=== PATIENT | female | born 1980 | race Caucasian/White ===

== ENCOUNTER 2019-04-02 21:09 | Observation (INO) ==
[2019-04-02] MEDS ORDERED: BOOSTRIX VACCINE IM ONE (21:44)
--- NOTE | 2019-04-02 21:44 | PROVIDER DOCUMENTATION ---
This chart was entered by Pauly Brown Scribe, acting as scribe for Pa Estes MD. HPI-Animal/Snake Bite Injury - General Chief Complaint: Snake Bite Stated Complaint: ANIMAL BITE Time Seen by Provider: 04/02/19 21:14 Patient arrived via EMS?: No Source: patient Allergies/Adverse Reactions: Patient Allergies Allergy/AdvReac Type Severity Reaction Status Date / Time No Known Allergies Allergy Verified 04/02/19 22:50 Home Medications: Home Medication List Medication Instructions Recorded Confirmed Last Taken Type Clonazepam [Klonopin] 0.5 mg PO Q6-8H PRN PRN 04/03/19 04/03/19 Unknown History Escitalopram Oxalate [Lexapro] 10 mg PO DAILY 04/03/19 04/03/19 Unknown History Levothyroxine [Synthroid] 100 mcg PO DAILY 04/03/19 04/03/19 Unknown History [place] Carbonate 450 mg PO BID 04/03/19 04/03/19 Unknown History - History of Present Illness-Bite Injuries Nature of Presenting Problem: 38yof presents to ED cc bitten by a copperhead snake at 8:45pm on right index finger. Pt reports snake was headed toward daughter, she got a towel, caught the snake with it and the snake bit her through the towel. Pt has snake in a bag in the ED. Pt denies SOB, N/V/D. Pt is A&Ox3. Onset/Duration: 1 hour ago Timing: reports: still present Locality of Occurance: Home Severity: mild Quality: stinging Loss of Consciousness: no loss of consciousness Remembers:: injury, coming to hospital Similar Symptoms Previously?: No Recently seen or treated by another doctor?: No - Snake Bite Snake Bite: reports: other (copperhead) Bite Injury Location: reports: hands (right index finger) Circumstances of attack: approached snake Severity of Bite Injury: reports: bitten Review of Systems - Adult - REVIEW OF SYSTEMS - ADULT Constitutional: reports: see HPI. denies: chills, fever, fatique Eyes: reports: no symptoms reported Ears, Nose, Mouth & Throat: reports: no symptoms reported Cardiovascular: reports: no symptoms reported Respiratory: reports: no symptoms reported Gastrointestinal: reports: no symptoms reported Genitourinary: reports: no symptoms reported Musculoskeletal: reports: no symptoms reported Integumentary: reports: see HPI, other (snake bite) Neurological: reports: no symptoms reported Psychiatric: reports: no symptoms reported Endocrine: reports: no symptoms reported Hematologic/Lymphatic: reports: no symptoms reported Allergic/Immunologic: reports: no symptoms reported All Other Systems: Reviewed and Negative Past History - Adult - PAST MEDICAL HISTORY-ADULT Review of Records: reports: Nursing Assessment Review, Medications Reviewed, Social history reviewed & non-contributory. Major Childhood Illnesses: reports: denies history Cardiovascular: reports: denies history Respiratory: reports: denies history Gastrointestinal: reports: denies history Obstetrical/Gynecological: reports: denies history Genitourinary: reports: denies history Musculoskeletal: reports: denies history Neurological: reports: denies history Endocrine/Immune: reports: denies history Other Conditions: reports: denies history - PRIOR SURGERIES/PROCEDURES Surgical/Procedure History: reports: breast - IMMUNIZATION STATUS Childhood Immunizations: See Nurse Assessment Flu Vaccine: See Nurse Assessment - FAMILY HISTORY Family History: reviewed, not pertinent Physical Exam-General - PHYSICAL EXAM-ADULT Initial Vital Signs Reviewed: Yes - CONSTITUTIONAL General Appearance: appears well, alert, no apparent distress. negative: anxious, combative - RESPIRATORY Respiratory: chest non-tender, lungs clear, normal breath sounds, no pleuratic chest pain, no respiratory distress, no accessory muscle use. negative: crackles, rales, rhonchi, stridor, wheezing - CARDIOVASCULAR Cardiovascular: normal peripheral pulses, regular rate, rhythm, no edema, no gallop, no JVD, no murmur. negative: bradycardia, tachycardia - SKIN Integumentary: normal turgor, other (small-fine puncture wound on right index finger, 1 fang no streaking dried blood). negative: cyanosis, diaphoresis, er ythema, jaundice, swelling - PSYCHIATRIC Psych/Mental Status: normal mood/affect, normal thought content, normal thought process, oriented x 3. negative: disoriented x 3, anxious, disheveled, depressed affect Progress - PLAN OF CARE/RESULTS Result Diagrams: 04/02/19 21:35 04/02/19 21:35 - REASSESSMENT Reassessment #1 Time Reassessed: 22:25 Status: unchanged - CONSULTS/PCP/HOSPITALIST Notification #1 *Consult/PCP/Hospitalist*: Dr. Beasley Time Discussed: 21:45 Consult Disposition: Admit (agreed to admit for observation) Departure - Departure Date of Disposition Decision: 04/03/19 Time of Disposition Decision: 00:01 DIAGNOSIS: Snake bite Qualifiers: Encounter type: initial encounter Qualified Code(s): W59.11XA - Bitten by nonvenomous snake, initial encounter Disposition: ADMITTED INPATIENT 09 Certified Medical Emergency: Emergent Condition: Stable - Critical Care Note This patient required my direct & personal management of CC.: No Attestation - Physician/ MARLEEN Attestation Patient care was provided by Advanced Practice Provider:: No The physician spent face to face time with patient:: Yes Advanced Practice Provider documentation review:: Supervising physician onsite and consulted in the evaluation and care of this patient. The physician did have a face to face encounter with the patient. This chart was documented by the indicated scribe, (Pauly Brown Scribe) and accurately reflects the services I performed and decisions made by me, Pa Estes MD, as attested by the provider's signature.
[2019-04-02] MEDS: NS 1,000 ML IV ONE ×2 (21:57→23:14)
[2019-04-02 22:09] LABS: BASO# 0.02 X1000 (0.0-0.2); BASO% 0.3 % (0.0-0.8); EOS# 0.15 X1000 (0.0-0.7); EOS% 2.5 % (0.0-10.0); HEMOGLOBIN 12.1 g/dL (12.0-16.0); IMM GRAN# 0.01 X1000 (0.0-0.04); IMM GRAN% 0.2 % (0.0-0.5); LYMPH# 2.18 X1000 (1.2-3.4); LYMPH% 36.6 % (20.5-51.1); MCH 27.7 PG (27-31); MCHC 31.8 g/dL (33-37); MONO# 0.44 X1000 (0.11-0.59); MONO% 7.4 % (1.7-9.3); MPV 10.2 FL (7.4-10.4); NEUT# 3.15 X1000 (1.4-6.5); PLT 286 X1000 (130-400); RBC 4.37 XMIL (4.2-5.4); RDW 15.2 % (11.5-14.5); WBC 5.95 X1000 (4.8-10.8)
[2019-04-02 22:14] LABS: AGAP 10; ALBUMIN 4.7 g/dL (3.5-5.0); ALKALINE PHOSPHATASE 68 U/L (32-104); BUN 8 mg/dL (8-22); CALCIUM 9.6 mg/dL (8.8-10.2); CHLORIDE 104 mmol/L (98-107); COSMO 281; CREATININE 0.6 mg/dL (0.5-0.9); ESTIMATED GFR > 60; GLUCOSE 127 mg/dL (70-104); GOT 30 U/L (10-30); GPT 26 U/L (10-36); POTASSIUM 3.3 mmol/L (3.5-5.1); SODIUM 141 mmol/L (136-145); TCO2 27 mmol/L (25-35); TOTAL PROTEIN 8.1 g/dL (6.3-8.3)
[2019-04-02 22:15] LABS: INR 0.91; PROTIME 12.7 Seconds (11.0-16.0); PTT 26.4 Seconds (22.3-41.8)
[2019-04-02 22:26] LABS: BILIRUBIN URINE NEGATIVE (NEGATIVE); BLOOD URINE NEGATIVE (NEGATIVE); CLARITY CLEAR (CLEAR); COLOR YELLOW; GLUCOSE URINE NEGATIVE (NEGATIVE); KETONE URINE NEGATIVE (NEGATIVE); LEUKOCYTES URINE NEGATIVE (NEGATIVE); NITRITE URINE NEGATIVE (NEGATIVE); PROTEIN URINE NEGATIVE (NEGATIVE); SP GRAVITY URINE 1.005; UROBILINOGEN URINE NORMAL
[2019-04-02] MEDS ORDERED: NS 1,000 ML IV ONE (22:27)
[2019-04-02 22:29] LABS: URINE BACTERIA NEGATIVE /HFP; URINE EPITHELIAL CELLS <10 /HPF (<10); URINE RBC <10 /HPF (<10); URINE SOURCE CLEAN CATCH; URINE WBC <10 /HPF (<10)
[2019-04-02] MEDS ORDERED: ZOFRAN ONE (23:02)
[2019-04-02] MEDS ORDERED: MORPHINE ONE (23:03)
[2019-04-02] MEDS: MORPHINE IV PRN (23:13)
[2019-04-02] MEDS: ZOFRAN IV PRN (23:16)
[2019-04-03] MEDS: MORPHINE IV PRN (01:14)
[2019-04-03] MEDS ORDERED: NS 1,000 ML IV SCH (04:45)
[2019-04-03] MEDS ORDERED: NORCO-7.5 PO PRN (07:53)
[2019-04-03] MEDS: ZOFRAN IV PRN (08:10)
[2019-04-03] MEDS ORDERED: LEXAPRO PO SCH (09:15)
[2019-04-03 09:33] LABS: BASO# 0.02 X1000 (0.0-0.2); BASO% 0.4 % (0.0-0.8); EOS# 0.14 X1000 (0.0-0.7); EOS% 3.1 % (0.0-10.0); HEMATOCRIT 35.5 % (37.0-47.0); HEMOGLOBIN 10.8 g/dL (12.0-16.0); LYMPH# 1.91 X1000 (1.2-3.4); LYMPH% 41.6 % (20.5-51.1); MCH 27.1 PG (27-31); MCHC 30.4 g/dL (33-37); MONO# 0.37 X1000 (0.11-0.59); MONO% 8.1 % (1.7-9.3); MPV 10.4 FL (7.4-10.4); NEUT# 2.15 X1000 (1.4-6.5); NEUT% 46.8 % (42.2-75.2); PLT 223 X1000 (130-400); RBC 3.99 XMIL (4.2-5.4); RDW 15.4 % (11.5-14.5); WBC 4.59 X1000 (4.8-10.8)
[2019-04-03 10:04] LABS: INR 0.97; PROTIME 13.4 Seconds (11.0-16.0)
[2019-04-03 10:05] LABS: PTT 28.5 Seconds (22.3-41.8)
--- NOTE | 2019-04-03 10:31 | HISTORY AND PHYSICAL ---
DATE OF ACTUAL HISTORY AND PHYSICAL: 04/03/2019. PRIMARY CARE PROVIDER: None. CHIEF COMPLAINT: Snake bite. HISTORY OF PRESENT ILLNESS: Ms. Abebe is a 38-year-old, female who reports being bitten by a copperhead snake around 8:45 p.m. on her right index finger. She was trying to denise the snake away. She thought it was a chicken snake. She got a towel, caught the snake, and it bit her through the towel with only one fang cassandra. She did have some initial swelling to the direct area. However, that has gone down significantly. There was no shortness of breath, nausea, vomiting, or diarrhea. No loss of consciousness. She is awake, alert, and oriented. The initial vital signs were completely unremarkable. Coagulations with PT, INR, PTT, and fibrinogen were all within normal limits. She did receive a Tdap booster in the ED, as well as pain medication and IV fluids, and has been monitored in observation status. Awaiting recheck of coagulation labs this morning. REVIEW OF SYSTEMS: Twelve-point review of systems completely negative except for those mentioned in the HPI. PAST MEDICAL HISTORY: 1. Gastroesophageal reflux disease. 2. Kidney stones. 3. Thyroid disease. 4. Bipolar. PAST SURGICAL HISTORY: 1. Partial hysterectomy. 2. Left breast reduction. 3. Kidney stone removal. 4. Cyst removal. FAMILY HISTORY: Reviewed and noncontributory. ALLERGIES: No known drug allergies. HOME MEDICATIONS: 1. Klonopin 0.5 mg p.o. q.6 to q.8 hours p.r.n. anxiety. 2. Lexapro 10 mg p.o. daily. 3. [place] carbonate 450 mg p.o. b.i.d. 4. Synthroid 100 mcg p.o. daily. 5. [place] 7.5/325 one each p.o. q.6 hours p.r.n. PHYSICAL EXAMINATION: VITAL SIGNS: Temperature is 98 degrees, heart rate 62, respirations 18, blood pressure 95/60, O2 is 100% on room air. GENERAL: Ms. Abebe is a pleasant, 38-year-old, female who is sitting up in the bed, in no acute distress. HEENT: Atraumatic, normocephalic. PERRL. NECK: Supple. Trachea midline. CARDIOVASCULAR: S1 and S2 appreciated. No murmurs, gallops, or rubs noted. RESPIRATORY: Lung sounds clear bilaterally. GI: Soft, nontender, nondistended. Positive bowel sounds x4 quadrants. EXTREMITIES: Negative for edema. Upper extremity, the right index finger, did note one bite cassandra. Did not notice any cellulitis. Minimal swelling. NEUROLOGIC: No focal deficits noted. Patient is awake, alert, and oriented x4. Follows commands. Moves all extremities. DIAGNOSTIC DATA: None. LABORATORY DATA: White count 5, hemoglobin and hematocrit 12 and 38, platelet count is 286,000. PT 12, INR 0.91, PTT 26.4, fibrinogen 270. Sodium 141, potassium 3.3, BUN 8, creatinine 0.8, blood glucose is 127. Urinalysis is clear. ASSESSMENT AND PLAN: 1. Copperhead snake bite. The patient was given a Tdap booster, pain medication, and intravenous fluids. The area has been marked. The swelling has reduced. Placed in observation status. 2. Bipolar disorder. Continue home medications. 3. Hypothyroidism. Continue Synthroid. 4. Further recommendations to follow physician evaluation, laboratory and diagnostic data. Dictated by MARIANNA Bourgeois for Humphrey Ramos MD cc: Humphrey Ramos MD
[2019-04-03 11:30] VITALS: BP 115/66
[2019-04-03] MEDS ORDERED: ESKALITH PO SCH (21:00)
--- NOTE | 2019-04-04 05:23 | HISTORY AND PHYSICAL ---
ADDENDUM: Patient seen and examined by myself. Full note dictated and discussed with nurse practitioner. Patient presented to the hospital with pain and swelling of her right index finger that started after being bitten by a snake. Currently, her finger is swollen, red, tender, but is fully movable. We will admit her to the hospital and follow. cc: Humphrey Ramos MD
--- NOTE | 2019-04-04 20:44 | DISCHARGE SUMMARY ---
ADMISSION DATE: 04/02/2019 DISCHARGE DATE: 04/03/2019 DISCHARGE DIAGNOSES: 1. Snake bit, right index finger. 2. Hypothyroidism. 3. Chronic anxiety. 4. Depression. CONSULTATIONS: None. PROCEDURES: None. BRIEF HOSPITAL COURSE: The patient is a 38-year-old female who presented to the hospital after having been bitten by a snake. Notes that it is at home. She attempted to remove it from her daughter when she was bitten. Thankfully, she had an uneventful hospital course. She does have some redness and swelling of her index finger. However, she is able to move it. DISPOSITION/INSTRUCTIONS: Patient will be discharged home. She will follow up outpatient with primary care of choice. She will follow up in the ER if by some chance her swelling of her index finger worsens. No changes were made on her chronic home medications, diet, or activity. cc: Humphrey Ramos MD
== END 2019-04-03 12:45 | disposition home or self-care (01) ==
LOC: P.MEDSURG 21:09 → P.ED 21:09
PROVIDERS: ATTEND Family Medicine
CPT/HCPCS: 80053; 81001; 85025; 85384; 85610; 85730; 90715; A9270; J2270; J2405; J7030

== ENCOUNTER 2019-05-21 03:47 | Observation (INO) ==
[2019-05-21 04:20] LABS: BASO# 0.02 X1000 (0.0-0.2); BASO% 0.4 % (0.0-0.8); EOS# 0.13 X1000 (0.0-0.7); EOS% 2.9 % (0.0-10.0); HEMOGLOBIN 11.8 g/dL (12.0-16.0); IMM GRAN# 0.01 X1000 (0.0-0.04); IMM GRAN% 0.2 % (0.0-0.5); LYMPH# 2.12 X1000 (1.2-3.4); LYMPH% 46.6 % (20.5-51.1); MCH 27.7 PG (27-31); MCHC 31.1 g/dL (33-37); MCV 89.2 FL (81-99); MONO# 0.36 X1000 (0.11-0.59); MONO% 7.9 % (1.7-9.3); MPV 10.2 FL (7.4-10.4); NEUT# 1.91 X1000 (1.4-6.5); PLT 272 X1000 (130-400); RBC 4.26 XMIL (4.2-5.4); RDW 14.4 % (11.5-14.5); WBC 4.55 X1000 (4.8-10.8)
--- NOTE | 2019-05-21 04:25 | EKG Report ---
Test Performed on : 05/21/2019 04:23:36 AM Test Reason : overdose Blood Pressure : / mmHG Vent. Rate : 051 BPM Atrial Rate : 051 BPM P-R Int : 172 ms QRS Dur : 084 ms QT Int : 476 ms P-R-T Axes : 025 053 017 degrees QTc Int : 438 ms Sinus bradycardia. Nonspecific T wave abnormality Abnormal ECG No previous ECGs available Unconfirmed Result
[2019-05-21 04:31] LABS: ACETAMINOPHEN < 1.2 ug/mL (10-30); AGAP 8; ALBUMIN 4.1 g/dL (3.5-5.0); ALKALINE PHOSPHATASE 52 U/L (32-104); BUN 9 mg/dL (8-22); CALCIUM 8.9 mg/dL (8.8-10.2); CHLORIDE 105 mmol/L (98-107); COSMO 271; CREATININE 0.6 mg/dL (0.5-0.9); ESTIMATED GFR > 60; GLUCOSE 98 mg/dL (70-104); GOT 20 U/L (10-30); GPT 18 U/L (10-36); POTASSIUM 3.9 mmol/L (3.5-5.1); SALICYLATES < 3.00 mg/dL (3-10); SODIUM 136 mmol/L (136-145); TCO2 23 mmol/L (25-35); TOTAL PROTEIN 7.1 g/dL (6.3-8.3)
[2019-05-21 04:33] LABS: UR AMPHETAMINES QUAL NONE DETECTED (NONE DETECT); UR BARBITUATES QUAL NONE DETECTED (NONE DETECT); UR BENZODIAZEPIN QUAL NONE DETECTED (NONE DETECT); UR CANNABINOIDS QUAL NONE DETECTED (NONE DETECT); UR COCAINE QUAL NONE DETECTED (NONE DETECT); UR METHADONE QUAL NONE DETECTED (NONE DETECT); UR METHAMPHETAMINE QUAL NONE DETECTED (NONE DETECT); UR OPIATES QUAL NONE DETECTED (NONE DETECT); UR OXYCODONE QUAL NONE DETECTED (NONE DETECT); UR PCP QUAL NONE DETECTED (NONE DETECT); UR PROPOXYPHENE QUAL NONE DETECTED (NONE DETECT); UR TCA QUAL NONE DETECTED (NONE DETECT)
--- NOTE | 2019-05-21 05:20 | PROVIDER DOCUMENTATION ---
HPI-Psychological Disorder - General Chief Complaint: Overdose Stated Complaint: POSS OVERDOSE Time Seen by Provider: 05/21/19 04:28 Source: patient Allergies/Adverse Reactions: Patient Allergies Allergy/AdvReac Type Severity Reaction Status Date / Time No Known Allergies Allergy Verified 04/02/19 22:50 Home Medications: Home Medication List Medication Instructions Recorded Confirmed Last Taken Type Clonazepam [Klonopin] 0.5 mg PO Q6-8H PRN PRN 04/03/19 05/21/19 Unknown History Escitalopram Oxalate [Lexapro] 10 mg PO DAILY 04/03/19 05/21/19 Unknown History Levothyroxine [Synthroid] 100 mcg PO DAILY 04/03/19 05/21/19 Unknown History [place] Carbonate 450 mg PO BID 04/03/19 05/21/19 Unknown History Lisdexamfetamine Dimesylate 50 mg PO BID 05/21/19 05/21/19 Unknown History [Vyvanse] - History of Present Illness-Psych Nature of Presenting Problem: Patient notes that she took 30 Lunesta tablets because she wanted to "go to sleep and not ever wake up." took pills about 3 hours [place]. No hallucinations. Notes a history of depression for which she takes medications. Notes that depression has worsened over the past 2 days but doesn't note any triggering event. Onset/Duration: reports: 1-3 hours ago Timing: reports: still present Severity: reports: moderate, severe Situational problems related to:: reports: other (unknown) Psychiatric Complaints: reports: depressed Substance Use: reports: none/never Previous psych related hospitalizations?: Yes Patient arrived by:: private car Similar Symptoms Previously?: Yes Recently seen or treated by another doctor?: No - Suicidal Ideation How did the ingestion/other suicidal act come to attention?: told Suicide Risk Assessment: depressed, organized plan Clinician's estimation of suicide risk?: high risk Suicidal Attempt Method: reports: Overdose Review of Systems - Adult - REVIEW OF SYSTEMS - ADULT Constitutional: reports: no symptoms reported Eyes: reports: no symptoms reported Ears, Nose, Mouth & Throat: reports: no symptoms reported Cardiovascular: reports: no symptoms reported Respiratory: reports: no symptoms reported Gastrointestinal: reports: no symptoms reported Genitourinary: reports: no symptoms reported Musculoskeletal: reports: no symptoms reported Integumentary: reports: no symptoms reported Neurological: reports: no symptoms reported Psychiatric: reports: see HPI Endocrine: reports: no symptoms reported Hematologic/Lymphatic: reports: no symptoms reported Allergic/Immunologic: reports: no symptoms reported All Other Systems: Reviewed and Negative Past History - Adult - PAST MEDICAL HISTORY-ADULT Review of Records: reports: Old Records Reviewed, Nursing Assessment Review, Medications Reviewed, Social history reviewed & non-contributory. Major Childhood Illnesses: reports: denies history Cardiovascular: reports: denies history Respiratory: reports: denies history Gastrointestinal: reports: denies history Obstetrical/Gynecological: reports: denies history Genitourinary: reports: denies history Musculoskeletal: reports: denies history Neurological: reports: denies history Psychiatric: reports: depression Endocrine/Immune: reports: denies history Other Conditions: reports: denies history - PRIOR SURGERIES/PROCEDURES Surgical/Procedure History: reports: breast - IMMUNIZATION STATUS Childhood Immunizations: See Nurse Assessment Flu Vaccine: See Nurse Assessment - FAMILY HISTORY Family History: reviewed, not pertinent Physical Exam-Psych Focus - Physical Exam-Psych Initial Vital Signs Reviewed: Yes Appearance: other (appears depressed) Neurological: oriented x 3, depressed affect Behavior/Eye Contact/Speech: cooperative, good eye contact, normal speech Thoughts/Hallucinations: no apparent hallucination HENMT: normocephalic/atraumatic Neck: non-tender, supple Respiratory: chest non-tender, lungs clear, normal breath sounds, no pleuratic chest pain, no respiratory distress, no accessory muscle use Cardiovascular: normal peripheral pulses, regular rate, rhythm, no edema, no gallop, no JVD, no murmur Abdominal Exam: normal bowel sounds, non tender, soft Lymphatic: no adenopathy Back Exam: normal inspection Extremity: normal inspection Integumentary: normal color, normal turgor, warm/dry Progress - PLAN OF CARE/RESULTS Progress/Plan/Lab Results: Vital Signs - 8 hr 05/21/19 03:49 Temperature 98.6 F Pulse Rate 51 L Respiratory Rate 18 Blood Pressure 109/56 O2 Sat by Pulse Oximetry 97 Laboratory Results - last 24 hr 05/21/19 05/21/19 05/21/19 03:56 03:56 03:56 WBC 4.55 L RBC 4.26 Hgb 11.8 L Hct 38.0 MCV 89.2 MCH 27.7 MCHC 31.1 L RDW Std Deviation 14.4 Plt Count 272 MPV 10.2 Immature Gran % (Auto) 0.2 Neut % (Auto) 42.0 L Lymph % (Auto) 46.6 [place] % (Auto) 7.9 Eos % (Auto) 2.9 Baso % (Auto) 0.4 Immature Gran # (Auto) 0.01 Neut # (Auto) 1.91 Lymph # (Auto) 2.12 [place] # (Auto) 0.36 Eos # (Auto) 0.13 Baso # (Auto) 0.02 Sodium 136 Potassium 3.9 Chloride 105 Carbon Dioxide 23 L Anion Gap 8 BUN 9 Creatinine 0.6 Estimated GFR/1.73 m2 > 60 BUN/Creatinine Ratio 15 Glucose 98 POC Glucose Calculated Osmolality 271 Calcium 8.9 Total Bilirubin 0.20 AST 20 ALT 18 Alkaline Phosphatase 52 Total Protein 7.1 Albumin 4.1 Globulin 3.0 Albumin/Globulin Ratio 1.0 Urine Test Salicylates < 3.00 L Urine Opiates Screen Ur Oxycodone Screen Urine Methadone Screen U Propoxyphene Qual Acetaminophen < 1.2 L Ur Barbituates Screen Ur Tricyclics Screen Ur Phencyclidine Scrn Ur Amphetamines Screen U Methamphetamines Scrn U Benzodiazepines Scrn Urine Cocaine Screen U Cannabinoids Screen Plasma/Serum Ethyl Alc 05/21/19 05/21/19 05/21/19 03:56 04:03 04:03 WBC RBC Hgb Hct MCV MCH MCHC RDW Std Deviation Plt Count MPV Immature Gran % (Auto) Neut % (Auto) Lymph % (Auto) [place] % (Auto) Eos % (Auto) Baso % (Auto) Immature Gran # (Auto) Neut # (Auto) Lymph # (Auto) [place] # (Auto) Eos # (Auto) Baso # (Auto) Sodium Potassium Chloride Carbon Dioxide Anion Gap BUN Creatinine Estimated GFR/1.73 m2 BUN/Creatinine Ratio Glucose POC Glucose Calculated Osmolality Calcium Total Bilirubin AST ALT Alkaline Phosphatase Total Protein Albumin Globulin Albumin/Globulin Ratio Urine Test NEGATIVE Salicylates Urine Opiates Screen NONE DETECTED Ur Oxycodone Screen NONE DETECTED Urine Methadone Screen NONE DETECTED U Propoxyphene Qual NONE DETECTED Acetaminophen Cancelled Ur Barbituates Screen NONE DETECTED Ur Tricyclics Screen NONE DETECTED Ur Phencyclidine Scrn NONE DETECTED Ur Amphetamines Screen NONE DETECTED U Methamphetamines Scrn NONE DETECTED U Benzodiazepines Scrn NONE DETECTED Urine Cocaine Screen NONE DETECTED U Cannabinoids Screen NONE DETECTED Plasma/Serum Ethyl Alc 05/21/19 04:16 WBC RBC Hgb Hct MCV MCH MCHC RDW Std Deviation Plt Count MPV Immature Gran % (Auto) Neut % (Auto) Lymph % (Auto) [place] % (Auto) Eos % (Auto) Baso % (Auto) Immature Gran # (Auto) Neut # (Auto) Lymph # (Auto) [place] # (Auto) Eos # (Auto) Baso # (Auto) Sodium Potassium Chloride Carbon Dioxide Anion Gap BUN Creatinine Estimated GFR/1.73 m2 BUN/Creatinine Ratio Glucose POC Glucose 85 Calculated Osmolality Calcium Total Bilirubin AST ALT Alkaline Phosphatase Total Protein Albumin Globulin Albumin/Globulin Ratio Urine Test Salicylates Urine Opiates Screen Ur Oxycodone Screen Urine Methadone Screen U Propoxyphene Qual Acetaminophen Ur Barbituates Screen Ur Tricyclics Screen Ur Phencyclidine Scrn Ur Amphetamines Screen U Methamphetamines Scrn U Benzodiazepines Scrn Urine Cocaine Screen U Cannabinoids Screen Plasma/Serum Ethyl Alc Orders Category Date Time Status Cardiac Monitoring DIRECTED Care 05/21/19 04:01 Active Finger Stick Blood Sugar (ED) DIRECTED Care 05/21/19 04:01 Completed [place] Insertion ORDERED Care 05/21/19 04:03 Active Saline Loc NOW Care 05/21/19 04:02 Active NPO Diet 05/21/19 04:03 Active ACETAMINOPHEN [TDM] Stat Lab 05/21/19 03:56 Completed ACETAMINOPHEN [TDM] Stat Lab 05/21/19 08:00 Uncollected ALCOHOL BLOOD Stat Lab 05/21/19 03:56 Completed CBC WITH ELECTRONIC DIFF [HEME] Stat Lab 05/21/19 03:56 Completed COMPREHENSIVE METABOLIC PANEL [CHEM] Stat Lab 05/21/19 03:56 Completed TEST-URINE [PREG] Stat Lab 05/21/19 04:03 Completed SALICYLATES [TDM] Stat Lab 05/21/19 03:56 Completed URINE DRUG SCREEN PL Stat Lab 05/21/19 04:03 Completed 0.9% Sodium Chloride Inj [Ns] 1,000 ml Med 05/21/19 05:22 Active IV 999 mls/hr Overdose (suspected) Stat Oth 05/21/19 04:01 Ordered EKG [EKG] Stat Ther 05/21/19 04:01 Draft Result Diagrams: 05/21/19 03:56 05/21/19 03:56 - CONSULTS/PCP/HOSPITALIST Notification #1 *Consult/PCP/Hospitalist*: Dr. Ramos Time Discussed: 06:16 Consult Disposition: Admit Departure - Departure Date of Disposition Decision: 05/21/19 Time of Disposition Decision: 06:17 DIAGNOSIS: Suicide attempt Overdose Qualifiers: Encounter type: initial encounter Injury intent: intentional self-harm Qualified Code(s): T50.902A - Poisoning by unspecified drugs, medicaments and biological substances, intentional self-harm, initial encounter Disposition: ADMITTED INPATIENT 09 Certified Medical Emergency: Emergent Condition: Stable Referrals and Follow-Ups: None,PCP [Primary Care Provider] - - Critical Care Note This patient required my direct & personal management of CC.: Yes Total Time (mins): 45 Critical Care Statement: This patient required my direct personal management to treat or rule out processes, the absence of which, could potentiallly result in sudden, clinically significant life or limb threatening deterioration. Attestation - Physician/ MARLEEN Attestation Patient care was provided by Advanced Practice Provider:: No The physician spent face to face time with patient:: Yes Advanced Practice Provider documentation review:: Supervising physician onsite and consulted in the evaluation and care of this patient. The physician did have a face to face encounter with the patient.
[2019-05-21] MEDS ORDERED: NS 1,000 ML IV ONE ×2 (05:22→06:18)
--- NOTE | 2019-05-21 09:03 | EKG Report ---
Test Performed on : 05/21/2019 08:42:35 AM Test Reason : Over dose Blood Pressure : / mmHG Vent. Rate : 046 BPM Atrial Rate : 046 BPM P-R Int : 162 ms QRS Dur : 078 ms QT Int : 482 ms P-R-T Axes : 034 070 030 degrees QTc Int : 421 ms Sinus bradycardia. with sinus arrhythmia. Otherwise normal ECG When compared with ECG of 21-MAY-2019 04:23, (Unconfirmed) Nonspecific T wave abnormality, improved in Anterior leads Confirmed by Wily Silver MD ([id number]) on 05/30/2019 3:25:19 PM
[2019-05-21 12:24] LABS: BILIRUBIN URINE NEGATIVE (NEGATIVE); BLOOD URINE NEGATIVE (NEGATIVE); CLARITY CLEAR (CLEAR); COLOR YELLOW; GLUCOSE URINE NEGATIVE (NEGATIVE); KETONE URINE NEGATIVE (NEGATIVE); LEUKOCYTES URINE NEGATIVE (NEGATIVE); NITRITE URINE NEGATIVE (NEGATIVE); PROTEIN URINE NEGATIVE (NEGATIVE); SP GRAVITY URINE 1.005; URINE EPITHELIAL CELLS <10 /HPF (<10); UROBILINOGEN URINE NORMAL
[2019-05-21 12:25] LABS: URINE CRYSTAL CA OXALATE PRESENT /HPF; URINE SOURCE CATH
--- NOTE | 2019-05-21 12:25 | HISTORY AND PHYSICAL ---
PRIMARY CARE PROVIDER: Dr. Fairchild located in [facility] here in [place]. PRIMARY PSYCHIATRIST: Dr. Camilo Linda. CHIEF COMPLAINT: Depression and suicidal attempt. HISTORY OF PRESENT ILLNESS: Ms. Leeann Abebe is a 38-year-old, female with a medical history of insomnia, ADD, bipolar type 2 with anxiety and depression, hypothyroidism, who is now here after a suicidal attempt at 3 a.m. this morning. She took 30 pills of Lunesta. She states that she has essentially been living in her bedroom, lying in bed all weekend long, feeling lonely and extremely depressed. The Lunesta, she states, she started taking around 8 or 10 months ago but does not take it on a routine basis, just only as needed. The Poison Control person's name was Gaby. They spoke to her. She states supportive care and observe for 6 hours or until asymptomatic, and to watch for respiratory and central nervous system suppression. What has been noticed is a lower blood pressure and a slower heart rate but she is sinus bradycardic, 40s and 50s. She is easily to wake now. We are going to monitor her for the next 24 hours to fully evaluate any negative effects that may or may not have had on her. We will have [facility] consulted for in the morning. PAST MEDICAL HISTORY: 1. GERD. 2. Kidney stones. 3. Hypothyroidism. 4. Bipolar type 2. 5. Anxiety, depression. 6. ADD. 7. Insomnia. 8. Recent copperhead bite on her right index finger on 04/02/2019. SURGICAL HISTORY: 1. Partial hysterectomy. 2. Left breast reduction. 3. Kidney stone removal. 4. Cyst removal. SOCIAL HISTORY: Denies tobacco. States she quit in 2008. Prior to that, she smoked less than a half pack per day for 9 years. Occasionally drinks alcohol, maybe 1 beer every 2 months. Denies any illicit drug use. She is , has a daughter and son, and does not work. FAMILY HISTORY: On mother's side of the family, there was diabetes and she had a grandmother who at 64 from a heart attack. On her father's side, there is multiple sclerosis but essentially is healthy otherwise. ALLERGIES: No known drug allergies. HOME MEDICATIONS: 1. Klonopin 0.5 mg p.o. every 6 to 8 hours p.r.n. for anxiety. 2. Simpson 450 mg p.o. twice a day. 3. Ritalin 10 mg p.o. twice daily. 4. Synthroid 100 mcg p.o. daily. 5. Lunesta 3 mg p.o. nightly but she has only been taking it as needed. REVIEW OF SYSTEMS: Fourteen point review of systems are complete and all were negative except those mentioned above in the HPI. It was noted that last Monday night, top of her head and the right arm felt numb for about an hour but never returned. PHYSICAL EXAMINATION: VITAL SIGNS: Temperature 98.7 degrees, heart rate 52, respiratory rate 19, blood pressure 99/56, O2 saturation 96% on room air, 5 feet 4 inches tall, 179 pounds, BMI is 30.9. GENERAL: Ms. Leeann Abebe is a 38-year-old, female. She is in no acute distress. She is drowsy but she is able answer all questions appropriately. HEENT: Atraumatic, normocephalic. Pupils equal, round, reactive to light. Extraocular movements intact. Mucous membranes are moist. NECK: Trachea midline. CARDIOVASCULAR: S1, S2. Bradycardic rate and rhythm. No rubs, gallops, or murmurs. No lower extremity edema. There are +2 dorsalis pedal pulses and radial pulses. Negative for JVD or carotid bruits. PULMONARY: Clear to auscultate bilateral breath sounds. No accessory muscle use or work of breathing noted. GI: Soft, nontender, nondistended. Positive bowel sounds x4. EXTREMITIES: Moves all extremities equally. Full range of motion. NEUROLOGICAL: A and O x3. Follows commands. Sensory is intact. She is a little bit drowsy, not as alert but she is drowsy. She is alert enough to carry on a conversation. SKIN: Warm, dry, intact. LABORATORY DATA: White blood cells 4000, hemoglobin 11, hematocrit 38, platelet count 272,000. Sodium 136, potassium 3.9, BUN 9, creatinine 0.6, glucose 98, calcium 8.9. Bilirubin 0.20, AST 20, ALT 18. Urine drug screen negative. Simpson is low at 0.37. Tylenol less than 1.2. Salicylate less than 3. Alcohol 0. IMAGING: None. EKG: Sinus bradycardia, rate 51, QTc is 438. Second EKG, sinus bradycardia, rate 46, QTc 421. ASSESSMENT/PLAN: 1. Suicidal attempt with overdose on Lunesta. Central nervous system depression noted with some drowsiness, bradycardia, and hypotension. We will have to monitor more closely for that. Otherwise, no electrolyte imbalances will be noted. Poison Control was notified. We will consult [facility] tomorrow after 24 hours of surveillance. We will go ahead and let her start having clear liquids as she is starting to wake up more and discontinue her Sanchez. 2. Bipolar type 2 with anxiety and depression. We will continue home medications and her lithium. That lithium level is low so it is likely she has not been taking it but we will resume it. Sodium level normal at 136. 3. Attention deficit disorder, on Ritalin. We will resume that as well to help wake her up some. 4. Hypothyroidism. We will continue Synthroid. 5. Insomnia. We are going to discontinue Lunesta. It can have a side effect of increased suicidal ideations. 6. Gastroesophageal reflux disease. 7. Deep venous thrombosis. Lovenox. Dictated by MARIANNA Cronin for Amos Hui MD Addendum: Patient seen and examined by myself. Agree with MARIANNA note. It reflects my assessment and plan. Patient is being admitted to hospital for suicidal attempt. She has a long history of depression and at this point will keep her in ICU for better monitoring. If tomorrow her labs are stable will consult [facility] and will go from there. cc: MARIANNA Cronin MD [facility]
--- NOTE | 2019-05-21 17:40 | EKG Report ---
Test Performed on : 05/21/2019 5:23:04 PM Test Reason : Lunesta overdose and poison control request Blood Pressure : / mmHG Vent. Rate : 058 BPM Atrial Rate : 058 BPM P-R Int : 144 ms QRS Dur : 092 ms QT Int : 434 ms P-R-T Axes : 032 055 019 degrees QTc Int : 426 ms Sinus bradycardia. with sinus arrhythmia. Nonspecific T wave abnormality Abnormal ECG When compared with ECG of 21-MAY-2019 08:42, (Unconfirmed) Inverted T waves have replaced nonspecific T wave abnormality in Anterior leads Confirmed by Wily Silver MD ([id number]) on 05/30/2019 3:25:37 PM
[2019-05-21] MEDS: ZOFRAN IV PRN (18:25)
[2019-05-21] MEDS: KLONOPIN PO PRN (21:00)
[2019-05-21] MEDS: LEXAPRO PO SCH (21:00)
[2019-05-21] MEDS: ESKALITH PO SCH (21:00)
[2019-05-22] MEDS: ZOFRAN IV PRN ×2 (00:03→18:08)
[2019-05-22 06:00] LABS: BASO# 0.03 X1000 (0.0-0.2); BASO% 0.7 % (0.0-0.8); EOS# 0.12 X1000 (0.0-0.7); EOS% 2.9 % (0.0-10.0); HEMATOCRIT 36.5 % (37.0-47.0); HEMOGLOBIN 11.5 g/dL (12.0-16.0); LYMPH# 2.03 X1000 (1.2-3.4); LYMPH% 49.2 % (20.5-51.1); MCH 28.5 PG (27-31); MCHC 31.5 g/dL (33-37); MCV 90.3 FL (81-99); MONO# 0.31 X1000 (0.11-0.59); MONO% 7.5 % (1.7-9.3); MPV 10.2 FL (7.4-10.4); NEUT# 1.64 X1000 (1.4-6.5); NEUT% 39.7 % (42.2-75.2); PLT 254 X1000 (130-400); RBC 4.04 XMIL (4.2-5.4); RDW 14.3 % (11.5-14.5); WBC 4.13 X1000 (4.8-10.8)
[2019-05-22 06:20] LABS: AGAP 8; ALBUMIN 3.9 g/dL (3.5-5.0); ALKALINE PHOSPHATASE 53 U/L (32-104); BUN 9 mg/dL (8-22); CALCIUM 8.8 mg/dL (8.8-10.2); CHLORIDE 106 mmol/L (98-107); COSMO 274; CREATININE 0.6 mg/dL (0.5-0.9); ESTIMATED GFR > 60; GLUCOSE 89 mg/dL (70-104); GOT 16 U/L (10-30); GPT 17 U/L (10-36); SODIUM 138 mmol/L (136-145); TCO2 24 mmol/L (25-35); TOTAL BILIRUBIN < 0.15 mg/dL (0.20-1.00); TOTAL PROTEIN 6.6 g/dL (6.3-8.3)
[2019-05-22] MEDS: SYNTHROID PO SCH (06:28)
[2019-05-22] MEDS: RITALIN PO SCH ×2 (08:44→12:34)
[2019-05-22] MEDS: LOVENOX SUBQ SCH (08:44)
[2019-05-22] MEDS: ESKALITH PO SCH ×2 (08:44→20:34)
--- NOTE | 2019-05-22 09:11 | PROGRESS NOTE ---
DATE: 05/22/2019 SUBJECTIVE: The patient is definitely more awake and alert. According to nursing staff, blood pressure has been in the range of 90s and heart rate has been in the low 40s. Some time in the night it has reached 30. OBJECTIVE: Vital Signs: Temperature 98.0 degrees, heart rate 45 respiratory rate 15, blood pressure 106/61, O2 saturation 100% 2 L nasal cannula. General examination: This is a 38-year- old female. Cardiovascular exam: S1, S2 heard. No murmurs, gallops, or rubs. Regular rate and rhythm. Respiratory exam: Clear bilaterally to auscultation. No work of breathing or using accessory muscles. Abdomen: Soft. Nontender to palpation. Bowel sounds present. No organomegaly. Extremities: No clubbing, cyanosis, or edema. Peripheral pulses present in both legs. Neurological exam: The patient is alert and oriented x3. Moves 4 extremities. LABORATORY DATA: Reviewed. ASSESSMENT AND PLAN: 1. Suicide attempt with overdose of Lunesta: At this point, the patient is stable. We will continue to monitor this patient closely in the intensive care unit. 2. Hypotension/bradycardia. Apparently this patient has been having blood pressure of 90 all the time, but also it was noted the heart rate has been in the low 40s and sometimes in the 30s most of the time. At this point, I think we will continue to monitor this patient here in the intensive care unit. We will call Cardiology to see there is anything else that we can do from their standpoint. 3. Bipolar disorder with anxiety and depression. We will continue home medication. [place] is low, so we will resume that medication. 4. Hypothyroidism. We will continue with Synthroid. 5. Insomnia. Of course, we are going to discontinue Lunesta at this point. We will continue to monitor. 6. Disposition: At this point, she needs to be seen by Cardiology to see if we are going to do something about the bradycardia. I have ordered an electrocardiogram that shows sinus bradycardia with heart rate of 40. We will continue to monitor. cc: Amos Hui MD
--- NOTE | 2019-05-22 09:32 | EKG Report ---
Test Performed on : 05/22/2019 08:43:47 AM Test Reason : BRADYCARDIA Blood Pressure : / mmHG Vent. Rate : 040 BPM Atrial Rate : 040 BPM P-R Int : 170 ms QRS Dur : 088 ms QT Int : 516 ms P-R-T Axes : 025 059 037 degrees QTc Int : 420 ms Marked sinus bradycardia. Abnormal ECG When compared with ECG of 21-MAY-2019 17:23, (Unconfirmed) T wave inversion no longer evident in Anterior leads Confirmed by Wily Silver MD ([id number]) on 05/30/2019 3:26:32 PM
--- NOTE | 2019-05-22 13:35 | CARDIOLOGY CONSULTATION ---
DATE: 05/22/2019 HISTORY OF PRESENT ILLNESS: Ms. Leeann Abebe is a 38-year-old, lady who was admitted with depression and suicidal attempt. Was noted to have bradycardia. Cardiology was consulted. A 38-year-old, lady with medical history of insomnia, ADD, bipolar with anxiety, depression, hypothyroidism. She is now admitted with a suicidal attempt at 3 a.m. She took 30 pills of Lunesta. She states that she has been living in her bedroom, lying in the bed. Became weak and feeling lonely and extremely depressed. The Poison Control Center was discussed with noticed slower heart rate, bradycardia in the 40s and 50s. She came to the emergency room and was admitted. From a cardiac standpoint, no chest pain. No history of syncope. She has recently started working with a physical trainer and well, and has been working at the gym for about an hour. There is no history of palpitations. No history of syncope. PAST MEDICAL HISTORY: 1. Gastroesophageal reflux disease. 2. Bipolar, depression. 3. Anxiety disorder. 4. ADD. 5. Insomnia. 6. Partial hysterectomy. 7. Left breast reduction. 8. Kidney stone removal. SOCIAL HISTORY: She denies tobacco abuse. She had quit in 2008. Occasionally drinks alcohol. No illicit drug abuse. FAMILY HISTORY: Diabetes, multiple sclerosis in her family. HOME MEDICATIONS: Klonopin 0.5 q.8 for anxiety, lithium 450 b.i.d., Ritalin 10 mg b.i.d., Synthroid 100 mcg, Lunesta. PHYSICAL EXAMINATION: Vital Signs: Blood pressure was 107/64. Cardiovascular System: Normal jugular venous pressure. There was no thyromegaly. There was no carotid bruit. First and second heart sounds were heard. There was no S3 gallop. Respiratory System: Normal air entry. There were no crepitations or rhonchi. Abdomen: Soft, nontender. There was no guarding or rigidity. Bowel sounds were heard. Central Nervous System: Alert and was moving all 4 extremities. Examination of the extremities revealed no pedal edema. LABORATORY EXAMINATION: Hemoglobin 11.7, hematocrit 36.5, platelet count of 254,000. Sodium 138, potassium 4.0, BUN 9, creatinine 0.6. Liver functions were normal. Electrocardiogram revealed sinus bradycardia, heart rate varying from 38 to 40 beats per minute, up to in the 50s as well, sinus bradycardia. There were no high-grade AV blocks. ASSESSMENT AND PLAN: Ms. Leeann Abebe is a 38-year-old, lady with a history of bipolar, depression, hypothyroidism. She was admitted with suicidal attempt and Lunesta overdose. From a cardiac standpoint, she is noted to have persistent bradycardia. Symptom-burleson, she has never had any syncopal episode. She has been working at the gym and works out for about an hour, she says. RECOMMENDATIONS: We will get an echocardiogram to assess cardiac and valvular function. We will get a GXT to see her exercise response to a treadmill. We will also check a full thyroid profile. cc: Jah Ybarra MD
[2019-05-22 14:00] LABS: FREE T4 1.21 ng/dL (0.93-1.70); TSH 1.89 uIUmL (0.27-4.20)
[2019-05-22] MEDS: TYLENOL PO PRN (18:07)
[2019-05-22] MEDS: KLONOPIN PO PRN (20:34)
[2019-05-22] MEDS: LEXAPRO PO SCH (20:34)
[2019-05-22] MEDS ORDERED: MAALOX PLUS LIQUID PO PRN (20:58)
[2019-05-23] MEDS: TYLENOL PO PRN (04:00)
[2019-05-23 06:09] LABS: HEMATOCRIT 38.3 % (37.0-47.0); HEMOGLOBIN 11.7 g/dL (12.0-16.0); MCH 27.7 PG (27-31); MCHC 30.5 g/dL (33-37); MCV 90.5 FL (81-99); MPV 10.1 FL (7.4-10.4); RBC 4.23 XMIL (4.2-5.4); RDW 14.3 % (11.5-14.5); WBC 4.22 X1000 (4.8-10.8)
[2019-05-23 06:20] LABS: AGAP 9; BUN 8 mg/dL (8-22); CALCIUM 9.4 mg/dL (8.8-10.2); CHLORIDE 105 mmol/L (98-107); COSMO 281; CREATININE 0.7 mg/dL (0.5-0.9); ESTIMATED GFR > 60; GLUCOSE 97 mg/dL (70-104); POTASSIUM 4.4 mmol/L (3.5-5.1); SODIUM 142 mmol/L (136-145); TCO2 29 mmol/L (25-35)
[2019-05-23] MEDS: SYNTHROID PO SCH (06:38)
[2019-05-23] MEDS: KLONOPIN PO PRN (07:19)
[2019-05-23] MEDS: RITALIN PO SCH ×2 (07:42→12:34)
[2019-05-23] MEDS: LOVENOX SUBQ SCH ×2 (07:45→12:33)
[2019-05-23] MEDS: ESKALITH PO SCH ×2 (07:45→12:33)
--- NOTE | 2019-05-23 10:12 | PROGRESS NOTE ---
DATE: 05/23/2019 SUBJECTIVE: The patient reports feeling fine. Denies any dizziness or chest pain. OBJECTIVE: Vital Signs: Temperature 97.7 degrees, heart rate 46, respiratory rate 15, blood pressure 98/55, O2 saturation 98% on room air. General Examination: This is a 38-year-old, female lying in bed, in no acute distress. Cardiovascular Examination: S1 and S2 heard. No murmurs, gallops, or rubs. Regular rate and rhythm. Respiratory Examination: Clear bilaterally to auscultation. No work of breathing or using accessory muscles. Abdomen: Soft, nontender to palpation. Bowel sounds present. No organomegaly. Extremities: No clubbing, cyanosis, or edema. Peripheral pulses present in both legs. Neurological Examination: The patient is alert and oriented x3. Moves 4 extremities. Laboratory Data: Reviewed. ASSESSMENT AND PLAN: 1. Suicidal attempt with overdose on Lunesta. The patient is stable. We will continue to monitor this patient closely in the intensive care unit. 2. Hypotension and bradycardia. That is the reason why we have consulted cardiology. She is going to have an echocardiogram and also a GXT stress test. I think if those results are normal, and cleared by cardiology, we can try to transfer her to [facility] [place]. 3. Bipolar disorder with anxiety and depression. We will continue home medications. 4. Hypothyroidism. We will continue with Synthroid. 5. Insomnia. We will continue to monitor. 6. Disposition. I think at this point, if all the cardiac workup is negative, I think we can transfer this patient to [facility] [place]. cc: Amos Hui MD
--- NOTE | 2019-05-23 10:45 | GRADED EXERCISE REPORT ---
DATE: 05/23/2019 INDICATION: Chest pain, bradycardia. ORDERING PHYSICIANS: Dr. Ybarra and Dr. Gillespie. SUMMARY: The patient's baseline EKG showed normal sinus rhythm in the 60s. No clear ST changes. She underwent GXT per modified Jeffrey protocol. Baseline heart rate 64, baseline blood pressure 115/69, heart rate peak was 131, but she had a higher heart rate than that. She reached 85% of predicted, 155 during stage III at about 8 minutes. She sustained that heart rate for about a minute. Her maximal heart rate was 160. She did peak modified age predicted at 87% that was 160. Her blood pressure erica to a maximum of 150/82. She did not develop any chest pain. She did stop after about a minute of sustaining at her peak maximal heart rate 85%. She stopped on her own accord. Again, no chest pain. EKG though did show not a clear, kind of a sloping concave ST depression, but it was more than a millimeter in V 3, V 4, V 5, V 6 at peak heart rate as compared to baseline. She recovered fairly quickly. Heart rate decreased in the 70s after about a 1 minute and 50 seconds. The test was felt to be clinically negative, but electrically I would have to say it is positive, although the concave nature of the ST depression is questionable, but she did have ST depressions greater than a millimeter in V 3, V 5, V 6. We will discuss with Cardiology and primary team results. Exercise capacity was fair. Blood pressure response was appropriate, but she did have electric changes during peak heart rate. cc: Dustin Caraballo MD
--- NOTE | 2019-05-23 13:35 | ECHO REPORT ---
ORDER DATE: 05/22/2019 INTERPRETING PHYSICIAN: Jah Ybarra MD. ECHOCARDIOGRAPHIC MEASUREMENTS: Interventricular septum: 0.8 cm. Left ventricular posterior wall: 0.8 cm. Diastolic diameter: 5 cm. Left atrium: 3.9 cm. Aorta: 3 cm. SUMMARY OF THE 2-DIMENSIONAL IMAGIN. Aortic valve leaflets are trileaflet. 2. Pulmonic valve was normal. 3. There is trivial pulmonary regurgitation. 4. Tricuspid valve was normal. 5. Mitral valve was normal. 6. Normal left ventricular cavity size. Estimated ejection fraction of 65%. 7. There is trace mitral regurgitation, trace tricuspid regurgitation. 8. Peak velocity across the tricuspid valve was 2.5 meters per second. 9. Peak velocity across the aortic valve less than 2 meters per second. 10.There is no aortic stenosis. 11.There is trivial aortic regurgitation. 12.There is no pericardial effusion or obvious intracardiac mass or thrombus seen. cc: Jah Ybarra MD
[2019-05-23 17:22] VITALS: BP 101/79
--- NOTE | 2019-05-24 09:35 | DISCHARGE SUMMARY ---
ADMISSION DATE: 05/21/2019 DISCHARGE DATE: 05/23/2019 DISCHARGE DIAGNOSES: 1. Suicidal attempt with overdose of Lunesta. 2. Bipolar disorder type 2 with anxiety and depression. 3. Attention deficit disorder. 4. Hypothyroidism. 5. Insomnia. 6. Gastroesophageal disease. 7. Bradycardia. CONSULTATIONS: Dr. Ybarra from Cardiology. PROCEDURES: 1. Echocardiogram Doppler showed ejection fraction of 65% with trivial aortic regurgitation, no pericardial effusion, normal left ventricular cavity size. 2. Exercise stress test was okay. HOSPITAL COURSE: In brief, this is a 38-year-old female with medical conditions mentioned above. She was admitted to the hospital for suicidal attempt with Lunesta overdose. She was admitted to the intensive care unit. She has also mild acute kidney injury that resolved with IV fluids. Day after admission she was definitely much better. We noticed that during her stay the heart rate was 46 and 40s with low blood pressure. So, we consulted Cardiology for this bradycardia. It was apparently asymptomatic. They decided to do an echocardiogram and a GXT stress test that returned normal. So she was cleared from Cardiology standpoint to be discharged medically. We have consulted [facility] for this suicidal attempt and they talked with the patient. They came up with a secure plan. The patient reports that she wants to have an appointment with her primary psychiatrist. In the meantime, will continue basically with home medications. The patient is being discharged in stable condition. We are not going to make any changes to her current medications. DISCHARGE PHYSICAL EXAMINATION: Vital Signs: Temperature 98.2 degrees, heart rate 62, respiratory rate 20, blood pressure 101/69, O2 saturation 96% on room air. General: This is a 38-year-old female lying in bed in no acute distress. Cardiovascular: S1, S2 heard. No murmurs, gallops, or rubs. Regular rate and rhythm. Respiratory: Clear bilaterally to auscultation. No work of breathing or using accessory muscles. Abdomen: Soft, nontender to palpation. Bowel sounds present. No organomegaly. Extremities: No clubbing, cyanosis, or edema. Peripheral pulses present in both legs. Neurological: The patient alert and oriented x3. Moves 4 extremities. DISCHARGE DISPOSITION: Home to self-care. FOLLOWUP: With her primary psychiatrist in a week. DISCHARGE MEDICATIONS: We are not going to make any changes to her current medications. cc: Amos Hui MD
== END 2019-05-23 19:00 | disposition home or self-care (01) | DRG 918 ==
LOC: P.ED 03:47 → P.ICU 07:39 → INTOOBSV 07:39 → SUATTDRO 07:39
PROVIDERS: ATTEND Internal Medicine